=== PATIENT | female | born 1975 | race Caucasian/White ===

== ENCOUNTER 2021-09-29 22:57 | Inpatient (IN) | payer SELFPAY ==
[~2021-09-29] VITALS: Ht 190.5 cm; Wt 128.0 kg
[~2021-09-29 22:57] MED LIST: AMIT75TA PO; ENOX40DI SQ; GABA300C18 PO; TRAZ-123 PO; WARF6TAB49 PO; ZOLP10TA PO
--- NOTE | 2021-09-29 23:11 | PHYS DOC ---
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 She describes midsternal chest pressure with dyspnea, nausea and vomiting and dizziness. Symptoms began shortly prior to calling EMS, so not long before arrival here. EMS gave Nitropaste and oral aspirin. They were not able to establish an IV in route. The patient was recently at [facility], less than a week ago, she had been admitted for several days for chest pain. She reports that her troponins became elevated, and she underwent cardiac catheterization twice within a period of 24 hours, first on09/23/21 and then again on 09/24/21 per her report. She reports that the first time no PCI or intervention was performed, but the second time she went to the [facility], she reports that she had 1 stent placed. She is not sure what vessel was stented. She denies any known previous history of coronary artery disease or ND before that. She has a history of antiphospholipid antibody syndrome, with a history of multiple arterial occlusions. Per her report starting back in 2003, she developed a large arterial occlusion in her right lower extremity, resulting in a below the knee amputation. Also around that time she had a descending aortic stent placed for what sounds like an aortic arterial occlusion, and this was placed at [facility]. She had been taking warfarin for quite some time, until this last hospitalization at [facility], and she was transitioned to oral Eliquis, oral aspirin and Plavix. She reports that she has been compliant with medications with the exception of yesterday, as she reports that she was in the ER at with her daughter all day, so she forgot to take her medicine at that time. She had taken her medications today reportedly. She reports no relief of pain with nitro paste, oral aspirin and intramuscular fentanyl by EMS. She reports that this pain she is having is new and completely different than the pain she had last week when she was seen at [facility]. EMS reported ST elevation with reciprocal changes, so a STEMI was activated in the field. They were unable to transmit an EKG prior to arrival. EKG does appear to be ischemic. I reviewed records from this facility, and she was admitted here in 2013, diagnosed with compartment syndrome of the right lower extremity and arterial thrombosis. The patient has no other specific knowledge of the details surrounding her recent hospitalization at [facility], and I am unable to procure records from there at this time. Review of Systems: Review of Systems: Constitutional: Denies fever HENT: Denies nasal congestion or sore throat. [] Respiratory: Reports dyspnea Cardiovascular: Chest pain GI: Denies abdominal pain. Reports nausea and vomiting. Musculoskeletal: Denies back pain or joint pain. [] Neurologic: Denies headache, focal weakness or sensory changes. She denies syncope. Psychiatric: Denies depression or anxiety. [] Heart Score: C/O Chest Pain: Yes HEART Score for Chest Pain: HEART Score for Chest Pain Response (Comments) Value History Highly Suspicious 2 Age >45 - < 65 1 Risk Factors >3 Risk Factors or Hx CAD 2 Troponin >3 x Normal Limit 2 Total 7 Risk Factors: Risk Factors: DM, Current or recent (<one month) smoker, HTN, HLP, family histo ry of CAD, obesity. Risk Scores: Score 0 - 3: 2.5% MACE over next 6 weeks - Discharge Home Score 4 - 6: 20.3% MACE over next 6 weeks - Admit for Clinical Observation Score 7 - 10: 72.7% MACE over next 6 weeks - Early Invasive Strategies Allergies: Allergies: Allergies Coded Allergies Type Severity Reaction Last Updated Verified No Known Drug Allergies 03/18/15 No Physical Exam: PE: Constitutional: Well developed, well nourished, non-toxic. She is chronically ill appearing and appears older than stated age. She appears to be uncomfortable. HENT: Normocephalic, atraumatic Eyes: Conjunctiva normal, no discharge. [] Neck: Normal range of motion, no tenderness, supple, no stridor. Trachea is midline. No JVD. Cardiovascular:Heart rate regular rhythm, +2 radial pulses bilaterally. +2 posterior tibial pulse left lower extremity Lungs & Thorax: Equal chest rise, no tachypnea, diminished breath sounds in bilateral bases, no rales, rhonchi or wheezes, middle and upper lung soni are clear to auscultation. She speaks in full and clear sentences. Abdomen: Abdomen is obese, soft, nondistended, no apparent tenderness to palp ation, normal bowel sounds, no palpable masses are noted, no palpable pulsatile mass Skin: Warm, dry, no erythema, no rash. No diaphoresis. Back: No deformity or tenderness Extremities: She has a below the knee amputation of the right lower extremity. Stump is clean, dry, intact without warmth erythema. She has 1+ nonpitting left lower extremity edema. There is some venous stasis changes of the skin of her left lower extremity. No left calf tenderness. No evidence of acute limb deformity. Warm and well perfused, cap refill is brisk, equal pulses in bilateral upper extremities. Neurologic: She is awake, alert, oriented x3, no facial asymmetry, moves all 4 extremities equally, though she does demonstrate diffuse, nonfocal generalized weakness, speech is clear and fluent, gross motor and sensation is intact Psychologic: Affect is flat EKG: EKG: EKG is interpreted at 2300 Rhythm is sinus Rate is [address] elevation in aVR ST depression leads I, II, aVF ST segment abnormalities in leads V4, V5 Radiology/Procedures: Radiology/Procedures: IMAGING REPORT Signed PATIENT: LJ AMADO MACCOUNT: [id number] : 1975 LOCATION: ER AGE: 46 SEX: F EXAM STATUS: PRE ER ORD. PHYSICIAN: AMPARO DAHL DO REASON: chest pain PROCEDURE: PORTABLE CHEST 1V Single view chest dated 09/29/2021 11:31 PM: COMPARISON: None Clinical Indication: Chest pain. Findings: Single upright portable exam of the chest was performed. Heart size upper limits of normal. Descending aortic stent graft in place. Lungs are clear. No consolidation or pleural effusion. No pneumothorax. IMPRESSION: No acute radiographic abnormality. Electronically signed by: Barber Dash MD (09/29/2021 11:33 PM) [facility] [place] DICTATED and SIGNED BY: BARBER DASH MD DATE: 09/29/21 [id number] IMAGING REPORT Signed PATIENT: LJ AMADO MACCOUNT: [id number] : 1975 LOCATION: ER AGE: 46 SEX: F EXAM STATUS: REG ER ORD. PHYSICIAN: AMPARO DAHL DO REASON: chest pain, concern for dissection PROCEDURE: CT ANGIOGRAPHY CHEST EXAMINATION: CTA chest, without and with IV contrast. INDICATION: 46 years, Female, chest pain, concerning for dissection. COMPARISON STUDY: CT abdomen dated 03/17/2015. TECHNIQUE: Unenhanced axial images were obtained through the thoracic aorta. Following the uneventful administration of a bolus of intravenous contrast, thin section axial CTA images were obtained through the chest using the CT aorta protocol. Multiplanar reconstructions were obtained through the aorta. 3-D and MIP reconstructions were also obtained. PQRS compliance statement: One or more of the following individualized dose reduction techniques were utilized for this examination: 1. Automated exposure control 2. Adjustment of the mA and/or kV according to patient size 3. Use of iterative reconstruction technique FINDINGS: VASCULAR: Unenhanced aorta: No mediastinal hemorrhage or periaortic fluid collection. No evidence of intramural hematoma. Enhanced aorta: No evidence of aortic dissection or aneurysm. No atherosclerosis or mural thrombus. Patent descending thoracic aortic stent with no evidence of in-stent stenosis. NONVASCULAR: Heart and Mediastinum: The visualized thyroid gland is normal in size and attenuation. No axillary or supraclavicular lymphadenopathy. No mediastinal, hilar or retrocrural lymphadenopathy. Multiple calcified mediastinal and left hilar lymph nodes. The heart and pericardium are within normal limits. LAD stent. The pulmonary arteries are within normal limits. Lungs, Airways and pleura: Central airways are patent. No focal consolidation, pleural effusion or pneumothorax. Subsegmental atelectasis and/or scarring in bibasilar lungs. Calcified granuloma in the left lower lobe. Minimal paraseptal emphysema in the right upper lobe. No suspicious pulmonary nodule. Abdomen: Slightly increasing size of left adrenal nodule since March 11, 2015, now measures 3.0 cm previously 2.4 cm. The Hounsfield unit of this nodule is -5, consistent with degenerated lipid rich adrenal adenoma. Bones and Soft Tissues: The visualized skeletal structures and soft tissues of the chest wall are within normal limits. IMPRESSION: 1. No evidence of aortic dissection or other acute cardiopulmonary process. 2. Patent descending thoracic aortic stent. Electronically signed by: Edgard Eisenberg MD (09/29/2021 11:43 PM) [facility] DICTATED and SIGNED BY: EDGARD EISENBERG MD DATE: 09/29/21 [id number] Course & Med Decision Making: Course & Med Decision Making Pertinent Labs and Imaging studies reviewed. (See chart for details) Code STEMI was activated from the field. The patient is placed on the monitor, IV established, oxygen ordered. I had contacted Dr. Benites about the patient shortly after her arrival, after obtaining the EKG. He came to the hospital to take her to the [facility]. I did order a stat CT angio of the chest, dissection study given her history of aortic stent, prior to her going to the [facility]. She reported no relief of pain with nitroglycerin, aspirin and intramuscular fentanyl. I ordered a dose of IV Zofran and IV morphine for her prior to going to the [facility]. She reports minimal relief of pain after this. Her vital signs are stable. She is placed on supplemental oxygen. No definitive dissection is noted on CT angio of the chest on my exam, no dissection reported by radiology. There did appear to be some filling defects of the pulmonary arteries, but there is no comment on this from the radiologist. No heparin will be given because the patient has been taking Eliquis, aspirin and Plavix. Nursing staff informed record label intern staff that the patient has hypokalemia, which should be addressed. Madai Disclaimer: Madai Disclaimer: This electronic medical record was generated, in whole or in part, using a voice recognition dictation system. Departure Departure Impression: Primary Impression: ACS (acute coronary syndrome) Additional Impressions: Hypokalemia Antiphospholipid antibody syndrome Disposition: ADMITTED INPATIENT Admitting Physician: KAIA (Dr. Schreiber) Condition: GUARDED Referrals: CELENA GOLDSMITH APRN (PCP) AMPARO DAHL DO Sep 29, 2021 23:11
--- NOTE | 2021-09-29 23:12 | EKG ---
[facility] [address] [place] [address] Test Date: 2021-09-29 Test Time: 22:59:51 Pat Name: LJ AMADO Department: Room: Gender: F Loftsman/Woman: : 1975 Requested By: AMPARO DAHL Order Number: [id number] Reading MD: Pieter Benites MD Measurements Intervals Marion Rate: 80 P: 156 MO: 160 QRS: 175 QRSD: 104 T: -170 QT: 418 QTc: 486 Interpretive Statements SR ANTEROLATERAL OR Electronically Signed On 10-03-2021 9:35:42 [employer] by Pieter Benites MD
[2021-09-29] MEDS ORDERED: LIDOCAINE 1% Multi-Dose 20 ML VIAL. ONE (23:13)
[2021-09-29] MEDS ORDERED: IODIXANOL 320 MG/ML 100 ML VIAL. ONE (23:14)
[2021-09-29] MEDS ORDERED: HEPARIN for ARTERIAL LINE 1,500 ML ONE (23:14)
[2021-09-29] MEDS ORDERED: IOHEXOL 350 MG/ML 100 ML VIAL. IV ONE (23:15)
[2021-09-29] MEDS ORDERED: MORPHINE SULFATE 4 MG/ML INJ. IVP ONE ×2 (23:15→23:30)
[2021-09-29 23:16] LABS: BASO # 0.1 x10^3/uL (0.0-0.2); BASO % 1 % (0-3); EOS # 0.2 x10^3/uL (0.0-0.7); EOS % 2 % (0-3); HEMATOCRIT 43.3 % (36.0-47.0); HEMOGLOBIN 14.9 g/dL (12.0-15.5); LYMPH # 4.4 x10^3/uL (1.0-4.8); LYMPH % 43 % (24-48); MEAN CORPUSCULAR HEMOGLOBIN 33 pg (25-35); MEAN CORPUSCULAR HGB CONC 35 g/dL (31-37); MEAN CORPUSCULAR VOLUME 96 fL (79-100); MONO # 0.7 x10^3/uL (0.0-1.1); MONO % 6 % (0-9); NEUT # 4.9 x10^3/uL (1.8-7.7); NEUT % 47 % (31-73); PLATELET COUNT 439 x10^3/uL (140-400); RED BLOOD COUNT 4.49 x10^6/uL (3.50-5.40); RED CELL DISTRIBUTION WIDTH 13.4 % (11.5-14.5); WHITE BLOOD COUNT 10.3 x10^3/uL (4.0-11.0)
[2021-09-29] MEDS ORDERED: VERAPAMIL 5 MG/2 ML VIAL. ONE (23:20)
[2021-09-29] MEDS ORDERED: HEPARIN for IV BOLUS 10,000 UNIT/10 ML VIAL. ONE (23:20)
[2021-09-29] MEDS ORDERED: fentaNYL PF VIAL 100 MCG/2 ML VIAL ONE (23:20)
[2021-09-29] MEDS ORDERED: MIDAZOLAM HCL/PF 2 MG/2 ML VIAL. ONE (23:20)
[2021-09-29] MEDS ORDERED: NITROGLYCERIN 200 MCG/2 ML SYRINGE FOR CATH/VASC LAB. ONE (23:20)
[2021-09-29] MEDS ORDERED: ONDANSETRON PF 4 MG/2 ML VIAL. ONE (23:28)
[2021-09-29] MEDS ORDERED: fentaNYL PF VIAL 100 MCG/2 ML VIAL IV ONE (23:30)
[2021-09-29] MEDS ORDERED: CONTRAST GIVEN. MC PRN (23:30)
[2021-09-29] MEDS ORDERED: IODIXANOL 320 MG/ML 100 ML VIAL. IART ONE (23:30)
[2021-09-29] MEDS ORDERED: MIDAZOLAM HCL/PF 2 MG/2 ML VIAL. IV ONE (23:30)
[2021-09-29] MEDS ORDERED: ONDANSETRON PF 4 MG/2 ML VIAL. IVP ONE (23:30)
[2021-09-29 23:33] LABS: ALBUMIN 3.7 g/dL (3.4-5.0); CALCIUM 8.6 mg/dL (8.5-10.1); CREATININE 0.9 mg/dL (0.6-1.0); GFR 67.4; MAGNESIUM 1.9 mg/dL (1.8-2.4); TOTAL BILIRUBIN 0.4 mg/dL (0.2-1.0); TOTAL PROTEIN 7.5 g/dL (6.4-8.2)
[2021-09-29 23:35] LABS: POTASSIUM 2.8 mmol/L (3.5-5.1)
--- NOTE | 2021-09-29 23:35 | RAD ---
Single view chest dated 09/29/2021 11:31 PM: COMPARISON: None Clinical Indication: Chest pain. Findings: Single upright portable exam of the chest was performed. Heart size upper limits of normal. Descendin g aortic stent graft in place. Lungs are clear. No consolidation or pleural effusion. No pneumothorax . IMPRESSION: No acute radiographic abnormality. Electronically signed by: Barber Dash MD (09/29/2021 11:33 PM) [facility]
--- NOTE | 2021-09-29 23:46 | RAD ---
EXAMINATION: CTA chest, without and with IV contrast. INDICATION: 46 years, Female, chest pain, concerning for dissection. COMPARISON STUDY: CT abdomen dated 03/17/2015. TECHNIQUE: Unenhanced axial images were obtained through the thoracic aorta. Following the uneventfu l administration of a bolus of intravenous contrast, thin section axial CTA images were obtained thro [facility] the chest using the CT aorta protocol. Multiplanar reconstructions were obtained through the aort a. 3-D and MIP reconstructions were also obtained. PQRS compliance statement: One or more of the following individualized dose reduction techniques were utilized for this examinat ion: 1. Automated exposure control 2. Adjustment of the mA and/or kV according to patient size 3. Use of iterative reconstruction technique FINDINGS: VASCULAR: Unenhanced aorta: No mediastinal hemorrhage or periaortic fluid collection. No evidence of intramural hematoma. Enhanced aorta: No evidence of aortic dissection or aneurysm. No atherosclerosis or mural thrombus. P atent descending thoracic aortic stent with no evidence of in-stent stenosis. NONVASCULAR: Heart and Mediastinum: The visualized thyroid gland is normal in size and attenuation. No axillary or supraclavicular lymphadenopathy. No mediastinal, hilar or retrocrural lymphadenopathy. Multiple calc ified mediastinal and left hilar lymph nodes. The heart and pericardium are within normal limits. LAD stent. The pulmonary arteries are within normal limits. Lungs, Airways and pleura: Central airways are patent. No focal consolidation, pleural effusion or pn eumothorax. Subsegmental atelectasis and/or scarring in bibasilar lungs. Calcified granuloma in the l eft lower lobe. Minimal paraseptal emphysema in the right upper lobe. No suspicious pulmonary nodule. Abdomen: Slightly increasing size of left adrenal nodule since March 11, 2015, now measures 3.0 cm prev iously 2.4 cm. The Hounsfield unit of this nodule is -5, consistent with degenerated lipid rich adren al adenoma. Bones and Soft Tissues: The visualized skeletal structures and soft tissues of the chest wall are wit hin normal limits. IMPRESSION: 1. No evidence of aortic dissection or other acute cardiopulmonary process. 2. Patent descending thoracic aortic stent. Electronically signed by: Rusty Eisenberg MD (09/29/2021 11:43 PM) [facility]
[2021-09-30] MEDS ORDERED: HEPARIN for IV BOLUS 10,000 UNIT/10 ML VIAL. IART ONE
[2021-09-30] MEDS ORDERED: NITROGLYCERIN 200 MCG/2 ML SYRINGE FOR CATH/VASC LAB. IART ONE
[2021-09-30] MEDS ORDERED: VERAPAMIL 5 MG/2 ML VIAL. IART ONE
[2021-09-30] MEDS ORDERED: POTASSIUM CHLORIDE 10MEQ 100 ML IV SCH
[2021-09-30] MEDS: TIROFIBAN 5MG -0.9% NS 100 ML IV PRN ×3 (00:23→08:58)
[2021-09-30] MEDS ORDERED: AMIODARONE 150 MG/3 ML VIAL ONE (00:28)
[2021-09-30] MEDS ORDERED: IODIXANOL 320 MG/ML 100 ML VIAL. ONE (00:34)
[2021-09-30] MEDS ORDERED: NITROGLYCERIN 200 MCG/2 ML SYRINGE FOR CATH/VASC LAB. ONE (00:44)
[2021-09-30] MEDS ORDERED: PRASUGREL 10 MG TABLET. ONE (01:10)
[2021-09-30] MEDS ORDERED: PRASUGREL 10 MG TABLET. PO ONE (01:15)
[2021-09-30 01:26] VITALS: BP 160/93
--- NOTE | 2021-09-30 01:39 | CARD ---
MR#: [id number] Date of Study: 09/29/2021 Ordering Physician: PEDRO BENITES, Referring Physician: PEDRO BENITES, Tech: RT Parth(R) APPROVED REPORT Technologist: Malena Mcadams RT(R) Nurse: Tita Dela Cruz RN Procedure(s) performed: FLUORO TIME: 19.1 MIN Dose: 206 Gycm2 Contrast: 208 cc's Moderate Sedation:70 MINS LHC, Coronary angiography Complex angioplasty of the proximal LAD stent thrombosis. IVUS INDICATION The indication(s) include : STEMI . [facility] Clinical Frailty Scale [facility] Clinical Frailty Scale: Severely Frail Heart Failure Heart Failure: Yes If Yes, Newly Diagnosed: No If Yes, HF Type: Diastolic If Yes, NYHA Class: Class III CASE TECHNIQUE IV conscious sedation was used throughout procedure with appropriate monitoring and was performed in the presence of a registered nurse who was an independent trained observer other than the physician p erforming the procedure. During this case, Fluoroscopy and low osmolar contrast were used for imaging . Specimen(s) Removed: N/A Estimated Blood loss: 30 cc's. PROCEDURE NARRATIVE Clinical information: 46 y.o woman presented to ER with chest pain. She had a recent history of LAD stent in the setting of an CT and underlying history of obesity, tobacco abuse, HTN, DLP and Anti-phospholipid antibody synd mare. She has been on plavix and eliquis. Informed consent: Verbal informed consent was obtained from the patient after adequate discussion of the risks and bene fits of the procedure. Procedure details: ACCESS: The right wrist was prepped and draped in usual sterile fashion. Under 1% lidocaine local anesthesia a 6 Icelandic Terumo sheath was placed in the right radial artery via the Seldinger technique. DIAGNOSTIC ANGIOGRAPHY: Right and left coronary arteries were engaged with a 6 Icelandic TIG catheter. Diagnostic angiography i n multiple views were obtained. Next, a 6 Icelandic TIG catheter was placed in the left ventricle and a LVEDP was measured. A pullback was performed. All catheters were exchanged over J-tip guidewire. FINDINGS: ======= Aorta: 200/100 LVEDP: 35 mmHg Left ventriculogram: Deferred. Coronary angiography: LM: Large caliber vessel with normal angiographic appearance LAD: Large caliber vessel with a proximal 100% occlusion at site of previously placed stent. This is a hyperdominant vessel which wraps around the apex. D1: Small caliber vessel with an ostial 100% occlusion. This vessel is jailed by the LAD stent. LCX: Large caliber dominant vessel with normal angiographic appearance. OM1: Moderate caliber vessel with normal angiographic appearance LPL: Moderate caliber vessel with normal angiographic appearance. LPDA: Small caliber vessel with normal angiographic appearance. RCA: Small caliber non-dominant vessel with normal angiographic appearance. INTERVENTIONAL TECHNIQUE: Heparin and Tirofiban were used for anticoagulation. Through a 6Fr EBU guide catheter, a 0.014'' Prow ater wire was initially placed in the distal 1st diagonal. Aspiration thrombectomy was performed due to heavy thrombus burden. Balloon angioplasty was then performed with a 3.0/15 mm balloon in the prox imal LAD and diagonal and using intravascular ultrasound to confirm true luminal placement. Next, a 2nd wire was placed in the distal LAD. Balloon angioplasty was then performed with a 3.5x15 and 4.0/1 5 non-compliant balloons at 18 monty. IVUS previously revealed under-sized stent the proximal LAD. Agnieszka l angiography demonstrated GUADALUPE 3 flow in the LAD and GUADALUPE 2 flow in D1 with minimal residual thrombu s inside the stent. Due to resolution of chest pain, lack of ST elevation and GUADALUPE 3 flow, further in tervention was deferred. The patient received Prasugrel 60mg at case completion. CLOSURE: At case completion the right radial sheath was removed and a Terumo radial band was applied with 11 m L of air. Hemostasis was achieved. COMPLICATIONS: No acute complications noted GUADALUPE Flow GUADALUPE Flow (Pre-Intervention): GUADALUPE-0 GUADALUPE Flow (Post-Intervention): GUADALUPE-3 Conclusion 1. Acute anterolateral STEMI 2. Acute on chronic diastolic HF. LVEDP 35 mm Hg 3. One vessel coronary disease with subacute stent thrombosis in the proximal LAD 4. Successful IVUS guided aspiration thrombectomy and PTCA of the LAD and 1st diagonal with a 4.0 and 3.0 mm balloons., respectively. Recommendations ASA 81mg daily x 7 days Prasugrel 10mg daily indefinitely Eliquis 5mg bid indefinitely High dose statin therapy Obtain outside hospital records, consider testing for plavix resistance and check Factor Xa levels to ensure patient compliance. Signed by : Pedro Benites, Electronically Approved : 09/30/2021 01:39:43
--- NOTE | 2021-09-30 02:34 | CONS ---
DATE OF CONSULTATION: 09/30/2021 REASON FOR CONSULTATION: Acute anterolateral ST elevation DE. HISTORY OF PRESENT ILLNESS: The patient is a 46-year-old woman who appears older than her stated age, who presented to the ER in the setting of exertional chest pain and was brought in by EMS. Upon arrival, she was noted to have anterolateral ST elevation DE, and due to her complex medical history, a CT scan was also performed, which did not reveal any significant aortic dissection and/or pulmonary embolus. Therefore, she was taken emergently to the catheterization laboratory. Of note, the patient reports that she was admitted to [facility] approximately 1 week ago, at which time she underwent a complex PCI. PAST MEDICAL HISTORY: 1. Coronary artery disease. 2. Thrombotic disease with prior history of lupus anticoagulant, on anticoagulation. 3. Morbid obesity. 4. Hypertension. 5. Dyslipidemia. REVIEW OF SYSTEMS: Negative for 10 out of 14 systems reviewed, unless otherwise mentioned above in HPI. FAMILY HISTORY: Noncontributory. SOCIAL HISTORY: The patient is a known smoker. No alcohol or illicit drug use. She is unvaccinated. ALLERGIES: No known drug allergies. CURRENT CARDIOVASCULAR MEDICATIONS: See medication administration record. PHYSICAL EXAMINATION: VITAL SIGNS: Afebrile, heart rate 92, blood pressure 148/86, pulse ox 99% on 2 liters via nasal cannula. GENERAL: The patient is in moderate distress from her pain in her chest for which she received antianginals, but otherwise was alert and oriented. HEAD AND NECK: Unremarkable. CARDIAC: Regular rate and rhythm without any murmurs, rubs or gallops. LUNGS: Clear to auscultation anteriorly with decreased breath sounds at the bases. ABDOMEN: Obese, nontender. EXTREMITIES: Radial pulses are 1+ on the right side, 2+ on the left side and femoral pulses are 1+ bilaterally. NEUROLOGIC: No obvious focal deficits. LABORATORY DATA: Notable for a potassium of 2.8. DIAGNOSTIC STUDIES: EKG demonstrates anterolateral ST elevations of 2-3 mm with reciprocal inferior changes. Cardiac catheterization demonstrated acute stent thrombosis of the previously placed proximal LAD stent, which was successfully recanalized. IMPRESSION: 1. Acute on chronic diastolic heart failure, left ventricular end-diastolic pressure 30 mmHg. 2. Acute anterolateral ST elevation myocardial infarction secondary to proximal left anterior descending subacute stent thrombosis. 3. Lupus anticoagulant, on anticoagulation with Eliquis. RECOMMENDATIONS: 1. It is unclear why the patient had acute stent thrombosis that partially appears to be related to an under-expanded stent. 2. This could also be related to some Plavix resistance. We will place the patient on prasugrel and Eliquis therapy going forward. We will also ensure the patient has been compliant with her medical therapy. Thank you for this consultation. We will follow along closely. MILY/DOROTEO DR: Mariano TID: [id number] DINA
[2021-09-30] MEDS ORDERED: PRED20TA PO (08:19)
[2021-09-30] MEDS ORDERED: METO25TA4 PO (08:19)
[2021-09-30] MEDS ORDERED: ZOLP5TAB PO (08:19)
[2021-09-30] MEDS ORDERED: ALBU2.5V8 IH (08:19)
[2021-09-30] MEDS ORDERED: CLOP75TA PO (08:19)
[2021-09-30] MEDS ORDERED: OXYB5TAB10 PO (08:19)
[2021-09-30] MEDS ORDERED: ORPH100T PO (08:19)
[2021-09-30] MEDS ORDERED: LIPITOR80 MG PO (08:19)
[2021-09-30] MEDS ORDERED: APIX5TAB PO (08:19)
[2021-09-30 08:20] VITALS: BP 134/82
[2021-09-30] MEDS: POTASSIUM CHLORIDE 20 MEQ TABLET.ER. PO ONE ×2 (08:34→10:40)
[2021-09-30 10:24] LABS: CALCIUM 8.5 mg/dL (8.5-10.1); CREATININE 0.8 mg/dL (0.6-1.0); GFR 77.2; MAGNESIUM 1.9 mg/dL (1.8-2.4); POTASSIUM 4.2 mmol/L (3.5-5.1)
[2021-09-30 11:00] VITALS: BP 144/84
--- NOTE | 2021-09-30 11:16 | HP ---
DATE OF SERVICE: 09/30/2021 ADMIT DATE: 09/30/2021 CHIEF COMPLAINT: Chest pain. HISTORY OF PRESENT ILLNESS: The patient is a pleasant 46-year-old female who was brought to the ER last night with chest pain. She had a bump in her troponin and she had some EKG changes. She was taken to the supervisor laboratory emergently and received a stent to the LAD and they also ballooned her previous stent. Now she is being examined in room 111 in the ICU. 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 ALLERGIES: None. FAMILY HISTORY: Diabetes and blood clots. SOCIAL HISTORY: She smokes. No drinking or drugs. She works as a sales department clerk at the [employer] as the come in. MEDICATIONS: Reviewed. Please refer to the MRAD. REVIEW OF SYSTEMS: GENERAL: No history of weight change, weakness or fevers. SKIN: No bruising, hair changes or rashes. EYES: No blurred, double or loss of vision. NOSE AND THROAT: No history of nosebleeds, hoarseness or sore throat. HEART: No history of palpitations, chest pain or shortness of breath on exertion. LUNGS: Denies cough, hemoptysis, wheezing or shortness of breath. GASTROINTESTINAL: Denies changes in appetite, nausea, vomiting, diarrhea or constipation. GENITOURINARY: No history of frequency, urgency, hesitancy or nocturia. NEUROLOGIC: Denies history of numbness, tingling, tremor or weakness. PSYCHIATRIC: No history of panic, anxiety or depression. ENDOCRINE: No history of heat or cold intolerance, polyuria or polydipsia. EXTREMITIES: Denies muscle weakness, joint pain, pain on walking or stiffness. PHYSICAL EXAMINATION: VITALS: Within normal limits and are stable. GENERAL: No apparent distress. Alert and oriented. HEENT: Normal cephalic atraumatic, external auditory canals are patent EYES: Extraocular muscles are intact, pupils are equally round and reactive to light and accommodation MUSCULOSKELETAL: Well developed, well nourished, good range of motion ENDOCRINE: No thyromegaly was palpated LYMPHATICS: No cervical chain or axillary nodes were noted HEMATOPOIETIC: No bruising NECK: Supple, no JVD, no thyromegaly was noted. LUNGS: Clear to auscultation in all lung soni without rhonchi or wheezing. HEART: RRR, S1, S2 present. Peripheral pulses intact, no obvious murmurs were noted. ABDOMEN: Soft, nontender. Positive bowel sounds no organomegaly, normal bowel sounds. EXTREMITIES: She has a right BKA. NEUROLOGIC: Normal speech, normal tone. A and O x 3, moves all extremities, no obvious focal deficits. PSYCHIATRIC: Normal affect, normal mood. Stable. SKIN: No ulcerations or rashes, good skin turgor, no jaundice. VASCULAR: Good capillary refill, neurovascular bundle appears to be intact. LABORATORY DATA: Hematology is normal. Electrolytes are normal this morning, but her potassium was low last night at 2.8, at this time replaced. Troponin 206. ASSESSMENT AND PLAN: Acute myocardial infarction with status post emergent cardiac intervention with stent placement. For now, we are monitoring her in the Intensive Care Unit. Serial enzymes, serial EKGs, home meds, deep vein thrombosis prophylaxis. Full code. She also has IV Aggrastat hanging. We certainly agree and appreciate Cardiology's assistance with this difficult case. Long-term prognosis is guarded. BEBETO/HUSSAIN DR: Edinson TID: [id number]
[2021-09-30] MEDS: ASPIRIN ENTERIC COATED 81 MG TABLET.DR. PO SCH (11:45)
[2021-09-30] MEDS: APIXABAN 5 MG TABLET. PO SCH ×2 (11:45→21:05)
[2021-09-30 15:00] VITALS: BP 137/92
[2021-09-30] MEDS ORDERED: ACETAMINOPHEN 325 MG TABLET. PO PRN (15:30)
--- NOTE | 2021-09-30 15:44 | NUR ---
SS following for discharge planning. SS reviewed pt chart and discussed with pt RN. Pt is from home with spouse and is currently on room air. Cardiology following. Pt had heart cath on 09/29/2021. Pt transferred to room 663. SS will continue to follow for discharge planning.
[2021-09-30 20:09] VITALS: BP 140/79
[2021-09-30] MEDS ORDERED: ATORVASTATIN CALCIUM 40 MG TABLET. PO SCH (21:00)
[2021-09-30] MEDS: METOPROLOL TART IMMED RELEASE 25 MG TABLET. PO SCH (21:06)
[2021-09-30 23:14] VITALS: BP 102/70
[2021-10-01 03:40] VITALS: BP 110/74
[2021-10-01 07:00] VITALS: BP 122/70
[2021-10-01] MEDS ORDERED: PRASUGREL 10 MG TABLET. PO SCH (08:00)
--- NOTE | 2021-10-01 09:04 | PDOC ---
CARDIOLOGY PROGRESS NOTE SUBJECTIVE: Jayla is a pleasant 46 yo F with a baseline hypercoagulable state 2/2 lupus admitted for ACS s/p ballooning of previous stent.She had no acute events overnight and no complaints this morning. OBJECTIVE: Vital Signs/I&O: Vital Signs Date Time Temp Pulse Resp B/P (MAP) Pulse Ox O2 Delivery O2 Flow Rate FiO2 10/01/21 07:00 98.8 90 20 122/70 (87) 97 Room Air 98.8 l I & O 09/30/21 09/30/21 10/01/21 15:00 23:00 07:00 Intake Total 300 ml 500 ml Balance 300 ml 500 ml Objective: General: Alert and oriented. In no acute distress, lying in bed. HEENT: Normocephalic, atruamatic, EOMI. Neck: no carotid bruits appreciated, Heart: RRR no murmurs or gallops Lungs: Extremities: right BKA Pulses: +2 in BUE and LLE CURRENT MEDICATIONS: Current Medications Medications (Trade) Dose Ordered Sig/Erica Route PRN Reason Start Time Stop Time Status Last Admin Dose Admin Aspirin (Ecotrin) 81 mg DAILYWBKFT PO 09/30/21 12:00 09/30/21 11:45 Metoprolol Tartrate (Lopressor) 25 mg BID PO 09/30/21 21:00 09/30/21 21:06 Atorvastatin Calcium (Lipitor) 80 mg QHS PO 09/30/21 21:00 09/30/21 21:06 Apixaban (Eliquis) 5 mg BID PO 09/30/21 12:00 09/30/21 21:05 Acetaminophen (Tylenol) 650 mg PRN Q6HRS PRN PO MILD PAIN / TEMP > 100.3'F 09/30/21 15:30 09/30/21 15:33 DIAGNOSTIC TESTING: Labs: Laboratory Tests 09/30/21 09:45 Laboratory Tests Test 09/30/21 09:45 Sodium Level 138 mmol/L (136-145) Potassium Level 4.2 mmol/L (3.5-5.1) # Chloride Level 102 mmol/L (98-107) Carbon Dioxide Level 25 mmol/L (21-32) Anion Gap 11 (6-14) Blood Urea Nitrogen 7 mg/dL (7-20) Creatinine 0.8 mg/dL (0.6-1.0) Estimated GFR (Cockcroft-Gault) 77.2 Glucose Level 122 mg/dL (70-99) H Calcium Level 8.5 mg/dL (8.5-10.1) ASSESSMENT: 46 y.o admitted with 1. ACS with LAD stent thrombosis s/p angioplasty 2. HTN 3. DLP 4. Prior hypercoagulable state with Thoracic Aortic endograft 5. Prior BKA on R side related to #4 PLAN: - Continue dual antiplatelet therapy with aspirin + prasugrel instead of clopidogrel 2/2 possible clopidogrel resistance - Restart apixaban for hypercoagulable state. - Continue metoprolol tartrate and atorvastatin - Ok to DC from a CV standpoint. She will f/u with [facility] CV services. Thanks Justicifation of Admission Dx: Justifications for Admission: Justification of Admission Dx: N/A PEDRO MCELROY MD Oct 01, 2021 09:04
[2021-10-01] MEDS: APIXABAN 5 MG TABLET. PO SCH (09:30)
[2021-10-01] MEDS: ASPIRIN ENTERIC COATED 81 MG TABLET.DR. PO SCH (09:30)
[2021-10-01] MEDS: METOPROLOL TART IMMED RELEASE 25 MG TABLET. PO SCH (09:31)
[2021-10-01 10:06] VITALS: BP 112/68
[2021-10-01] MEDS ORDERED: PRAS10TA9 PO (12:55)
--- NOTE | 2021-10-01 13:11 | PDOC ---
[employer] PROGRESS NOTE Date of Service DOS: DATE: 10/01/21 TIME: 12:40 Chief Complaint Chief Complaint Acute anterolateral STEMI - Successful IVUS guided aspiration thrombectomy and PTCA of the LAD and 1st diagonal with a 4.0 and 3.0 mm balloons., respectively. Acute on chronic diastolic HF. LVEDP 35 mm Hg One vessel coronary disease with subacute stent thrombosis in the proximal LAD Lupus anticoagulant with coagulopathy - on eliquis Prior thoracic aortic endograft Dental caries History of Present Illness History of Present Illness Ms Arellano is a 46yo female with PMHx CAD status post stenting, right BKA, antiphospholipid antibody syndrome on lifelong anticoagulation recently transition from warfarin to Eliquis who comes to the ED on 09/29/2021 complaining of substernal chest pain with EKG changes She has hypercoagulable state due to lupus anticoagulant also with prior history of thoracic aortic endograft status and is post LAD stent a week prior to admission at [facility]. Went to the Supplier Quality Specialist 09/30/2021 for in-stent thrombosis status post repeat angioplasty transition to prasugrel. Aspirin continue Eliquis continue metoprolol and atorvastatin and follow-up outpatient at [facility]. 10/01: Chest pain-free today. Asking if she can go home. Counseled on compliance with Effient therapy and follow-up with [facility]. We will continue aspirin for 1 week and remain on Eliquis lifelong. Notably with poor dentition will need to have multiple teeth pulled in a year when she could be off anticoagulation. At that time would recommend that she bridged on Lovenox Vitals/I&O Vitals/I&O: Vital Signs Date Time Temp Pulse Resp B/P (MAP) Pulse Ox O2 Delivery O2 Flow Rate FiO2 10/01/21 10:06 98.0 87 18 112/68 (83) 96 Room Air 98.0 l I & O 09/30/21 09/30/21 10/01/21 15:00 23:00 07:00 Intake Total 300 ml 500 ml Balance 300 ml 500 ml Physical Exam Lungs: Clear Assessment and Plan Assessmemt and Plan Problems Medical Problems: (1) Antiphospholipid antibody syndrome Status: Acute (2) Hypokalemia Status: Acute Comment Review of Relevant I have reviewed the following items pepito (where applicable) has been applied. Medications: Current Medications Medications (Trade) Dose Ordered Sig/Erica Route PRN Reason Start Time Stop Time Status Last Admin Dose Admin Prasugrel (Effient) 10 mg DAILYWBKFT PO 10/01/21 08:00 10/01/21 09:30 Metoprolol Tartrate (Lopressor) 25 mg BID PO 09/30/21 21:00 10/01/21 09:31 Atorvastatin Calcium (Lipitor) 80 mg QHS PO 09/30/21 21:00 09/30/21 21:06 Acetaminophen (Tylenol) 650 mg PRN Q6HRS PRN PO MILD PAIN / TEMP > 100.3'F 09/30/21 15:30 09/30/21 15:33 Justifications for Admission Other Justification SHELLY TOLEDO MD Oct 01, 2021 13:11
--- NOTE | 2021-10-01 13:13 | PDOC3 ---
Discharge Summary Visit Information Date of Admission: Sep 30, 2021 Date of Discharge: Oct 01, 2021 Admitting Diagnosis: ACS Final Diagnosis Problems Medical Problems: (1) Antiphospholipid antibody syndrome Status: Acute (2) Hypokalemia Status: Acute Brief Hospital Course Allergies Allergies Coded Allergies Type Severity Reaction Last Updated Verified No Known Drug Allergies 03/18/15 No Vital Signs Vital Signs Date Time Temp Pulse Resp B/P (MAP) Pulse Ox O2 Delivery O2 Flow Rate FiO2 10/01/21 10:06 98.0 87 18 112/68 (83) 96 Room Air 98.0 Lab Results Laboratory Tests Test 09/29/21 23:05 09/30/21 09:45 White Blood Count 10.3 x10^3/uL (4.0-11.0) Red Blood Count 4.49 x10^6/uL (3.50-5.40) Hemoglobin 14.9 g/dL (12.0-15.5) Hematocrit 43.3 % (36.0-47.0) Mean Corpuscular Volume 96 fL (79-100) Mean Corpuscular Hemoglobin 33 pg (25-35) Mean Corpuscular Hemoglobin Concent 35 g/dL (31-37) Red Cell Distribution Width 13.4 % (11.5-14.5) Platelet Count 439 x10^3/uL (140-400) Neutrophils (%) (Auto) 47 % (31-73) Lymphocytes (%) (Auto) 43 % (24-48) Monocytes (%) (Auto) 6 % (0-9) Eosinophils (%) (Auto) 2 % (0-3) Basophils (%) (Auto) 1 % (0-3) Neutrophils # (Auto) 4.9 x10^3/uL (1.8-7.7) Lymphocytes # (Auto) 4.4 x10^3/uL (1.0-4.8) Monocytes # (Auto) 0.7 x10^3/uL (0.0-1.1) Eosinophils # (Auto) 0.2 x10^3/uL (0.0-0.7) Basophils # (Auto) 0.1 x10^3/uL (0.0-0.2) Sodium Level 140 mmol/L (136-145) 138 mmol/L (136-145) Potassium Level 2.8 mmol/L (3.5-5.1) 4.2 mmol/L (3.5-5.1) Chloride Level 103 mmol/L (98-107) 102 mmol/L (98-107) Carbon Dioxide Level 24 mmol/L (21-32) 25 mmol/L (21-32) Anion Gap 13 (6-14) 11 (6-14) Blood Urea Nitrogen 7 mg/dL (7-20) 7 mg/dL (7-20) Creatinine 0.9 mg/dL (0.6-1.0) 0.8 mg/dL (0.6-1.0) Estimated GFR (Cockcroft-Gault) 67.4 77.2 BUN/Creatinine Ratio 8 (6-20) Glucose Level 145 mg/dL (70-99) 122 mg/dL (70-99) Calcium Level 8.6 mg/dL (8.5-10.1) 8.5 mg/dL (8.5-10.1) Magnesium Level 1.9 mg/dL (1.8-2.4) 1.9 mg/dL (1.8-2.4) Total Bilirubin 0.4 mg/dL (0.2-1.0) Aspartate Amino Transf (AST/SGOT) 17 U/L (15-37) Alanine Aminotransferase (ALT/SGPT) 30 U/L (14-59) Alkaline Phosphatase 73 U/L (46-116) Troponin I High Sensitivity 206 ng/L (4-50) GU-Sze-M-Type Natriuretic Peptide 97 pg/mL (0-124) Total Protein 7.5 g/dL (6.4-8.2) Albumin 3.7 g/dL (3.4-5.0) Albumin/Globulin Ratio 1.0 (1.0-1.7) Brief Hospital Course Ms Arellano is a 46yo female with PMHx CAD status post stenting, right BKA, antiphospholipid antibody syndrome on lifelong anticoagulation recently transition from warfarin to Eliquis who comes to the ED on 09/29/2021 complaining of substernal chest pain with EKG changes She has hypercoagulable state due to lupus anticoagulant also with prior history of thoracic aortic endograft status and is post LAD stent a week prior to admission at [facility]. Went to the Etl Analyst Developer 09/30/2021 for in-stent thrombosis status post repeat angioplasty transition to prasugrel. Aspirin continue Eliquis continue metoprolol and atorvastatin and follow-up outpatient at [facility]. 10/01: Chest pain-free today. Asking if she can go home. Counseled on compliance with Effient therapy and follow-up with [facility]. We will continue aspirin for 1 week and remain on Eliquis lifelong. Notably with poor dentition will need to have multiple teeth pulled in a year when she could be off anticoagulation. At that time would recommend that she bridged on Lovenox Consults: Cardiology Problem list: Acute anterolateral STEMI - Successful IVUS guided aspiration thrombectomy and PTCA of the LAD and 1st diagonal with a 4.0 and 3.0 mm balloons., respectively. Acute on chronic diastolic HF. LVEDP 35 mm Hg One vessel coronary disease with subacute stent thrombosis in the proximal LAD Lupus anticoagulant with coagulopathy - on eliquis Prior thoracic aortic endograft Dental caries Greater than 30 minutes spent on d/c home with self care Discharge Information Condition at Discharge: Improved Follow Up: Weeks (1) Disposition/Orders: D/C to Home Scheduled Apixaban (Eliquis) 5 Mg Tablet, 5 MG PO BID for DVT PPX , (Reported) Entered as Reported by: JUAN CARLOS ENGEL on 09/30/21818 Last Taken: Unknown Dose on 09/29/21 Last Action: New Order on 09/30/21818 by JUAN CARLOS ENGEL Atorvastatin Calcium (Lipitor) 80 Mg Tablet, 80 MG PO HS for FOR CHOLESTEROL, # 30 Ref 0 (Reported) Entered as Reported by: JUAN CARLOS ENGEL on 09/30/21818 Last Taken: Unknown Dose on 09/28/21 Last Action: Converted on 09/30/21 1122 by FABIEN ADDISON Gabapentin (Neurontin ) 300 Mg Capsule, 1 CAP PO DAILY, #90 Ref 3 (Reported) Entered as Reported by: ILIANA WHITE on 03/17/152003 Last Action: Reviewed on 09/30/21809 by JUAN CARLOS ENGEL Metoprolol Tartrate (Metoprolol Tartrate) 25 Mg Tablet, 1 TAB PO BID for HTN, #180 Ref 1 (Reported) Entered as Reported by: JUAN CARLOS ENGEL on 09/30/21818 Last Taken: Unknown Dose on 09/29/21 Last Action: Continued on 09/30/21 112 by FABIEN ADDISON Oxybutynin Chloride (Oxybutynin Chloride) 5 Mg Tablet, 5 MG PO TID for OVERACTIVE BLADDER, (Reported) Entered as Reported by: JUAN CARLOS ENGEL on 09/30/21818 Last Taken: Unknown Dose on 09/29/21 Last Action: New Order on 09/30/21818 by JUAN CARLOS ENGEL Prasugrel Hcl (Effient) 10 Mg Tablet, 10 MG PO DAILYWBKFT for CAD, plavix failure for 30 Days, #30 Ref 11 Prescribed by: SHELLY TOLEDO MD on 10/01/21 1255 Trazodone Hcl (Trazodone Hcl) 100 Mg Tablet, 100 MG PO HS, (Reported) Entered as Reported by: ANDREA DORAN on 10/30/13 0643 Last Action: Reviewed on 09/30/21809 by JUAN CARLOS ENGEL Scheduled PRN Albuterol Sulfate (Proair Hfa Inhaler) 8.5 Gm Hfa.aer.ad, 2 PUFF IH PRN Q4HRS PRN for wheezing for 21 Days, #1 Ref 0 (Reported) Entered as Reported by: JUAN CARLOS ENGEL on 09/30/21818 Last Taken: UNKNOWN on Unknown Date & Time Last Action: New Order on 09/30/21818 by JUAN CARLOS ENGEL Zolpidem Tartrate (Ambien) 5 Mg Tablet, 12.5 MG PO PRN QHS PRN for INSOMNIA, Ref 0 (Reported) Entered as Reported by: JUAN CARLOS ENGEL on 09/30/21818 Last Taken: UNKNOWN on Unknown Date & Time Last Action: New Order on 09/30/21818 by JUAN CARLOS ENGEL Discontinued Medications Amitriptyline Hcl (Amitriptyline Hcl) 75 Mg Tablet, 1 TAB PO QHS, #30 Ref 3 (Reported) Entered as Reported by: ILIANA WHITE on 03/17/152003 Last Action: Discontinued on 09/30/21809 by JUAN CARLOS ENGEL Clopidogrel Bisulfate (Clopidogrel) 75 Mg Tablet, 1 TAB PO DAILY for DVT PPX , #90 Ref 1 (Reported) Entered as Reported by: JUAN CARLOS ENGEL on 09/30/21818 Last Taken: Unknown Dose on 09/29/21 Last Action: New Order on 09/30/21818 by JUAN CARLOS ENGEL Orphenadrine Citrate (Orphenadrine Citrate) 100 Mg Tablet.er, 100 MG PO HS for MUSCLE PAIN, (Reported) Entered as Reported by: JUAN CARLOS ENGEL on 09/30/21818 Last Taken: Unknown Dose on 09/28/21 Last Action: New Order on 09/30/21818 by JUAN CARLOS ENGEL Prednisone (Prednisone) 20 Mg Tablet, 20 MG PO PRN DAILY PRN for CONGESTION, (Reported) Entered as Reported by: JUAN CARLOS ENGEL on 09/30/21818 Last Taken: UNKNOWN on Unknown Date & Time Last Action: New Order on 09/30/21818 by JUAN CARLOS ENGEL Zolpidem Tartrate (Ambien) 10 Mg Tablet, 1 TAB PO HS, #30 Ref 5 (Reported) Entered as Reported by: ILIANA WHITE on 03/17/152003 Last Action: Discontinued on 09/30/21809 by JUAN CARLOS ENGEL Justicifation of Admission Dx: Justifications for Admission: Justification of Admission Dx: N/A SHELLY TOLEDO MD Oct 01, 2021 13:13
== END 2021-10-01 15:20 | disposition home or self-care (01) | DRG 250 ==
LOC: ER 22:57 → 1 WEST ICU 09-30 00:20 → 6 SOUTH 09-30 01:35
PROVIDERS: ADMIT Student in an Organized Health Care Education/Training Program; ATTEND Student in an Organized Health Care Education/Training Program
PROC: 4A023N7 Measurement of Cardiac Sampling and Pressure, Left Heart, Percutaneous Approach (ICD-10-PCS; principal; 2021-09-30)
PROC: 02C13ZZ Extirpation of Matter from Coronary Artery, Two Arteries, Percutaneous Approach (ICD-10-PCS; 2021-09-30)
PROC: 02713ZZ Dilation of Coronary Artery, Two Arteries, Percutaneous Approach (ICD-10-PCS; 2021-09-30)
PROC: B2111ZZ Fluoroscopy of Multiple Coronary Arteries using Low Osmolar Contrast (ICD-10-PCS; 2021-09-30)
PROC: B241ZZ3 Ultrasonography of Multiple Coronary Arteries, Intravascular (ICD-10-PCS; 2021-09-30)
PROC: 3E033PZ Introduction of Platelet Inhibitor into Peripheral Vein, Percutaneous Approach (ICD-10-PCS; 2021-09-30)
DX: T82.867A Thrombosis due to cardiac prosthetic devices, implants and grafts, initial encounter (principal); I21.09 ST elevation (STEMI) myocardial infarction involving other coronary artery of anterior wall; I50.33 Acute on chronic diastolic (congestive) heart failure; D68.61 Antiphospholipid syndrome; E78.5 Hyperlipidemia, unspecified; E87.6 Hypokalemia; F17.200 Nicotine dependence, unspecified, uncomplicated; I11.0 Hypertensive heart disease with heart failure; I25.10 Atherosclerotic heart disease of native coronary artery without angina pectoris; K02.9 Dental caries, unspecified; Y83.1 Surgical operation with implant of artificial internal device as the cause of abnormal reaction of the patient, or of later complication, without mention of misadventure at the time of the procedure; Z79.01 Long term (current) use of anticoagulants; Z83.3 Family history of diabetes mellitus; Z89.511 Acquired absence of right leg below knee; Z90.49 Acquired absence of other specified parts of digestive tract; E66.01 Morbid (severe) obesity due to excess calories
CPT/HCPCS: 36415; 37252; 71045; 71275; 80048; 80053; 83735; 83880; 84484; 85025; 92941; 93005; 93458; 96374; 99152; 99153; C1725; C1753; C1757; C1894; J1644; J2250; J2270; J2405; J3010; J3480; J3490; Q9967; 99285-25; G0378; J3246